=== PATIENT | female | born 2000 | race Native Hawaiian/Other Pacific Islander ===

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

== ENCOUNTER 2020-06-05 20:36 | Outpatient (CLI) | payer OTHER ==
[2020-06-05 21:03] VITALS: BP 101/65
[2020-06-05] MEDS ORDERED: LACTATED RINGERS 1,000 ML IV ONE (21:12)
[2020-06-05 21:31] LABS: Bacteria,Urine 1+ /HPF (Negative); Bilirubin,Urine NEG (Negative); Blood,Urine NEG (Negative); Color,Urine Yellow (Yellow); Mucus,Urine FEW /HPF; Protein,Urine <15 mg/dL mg/dL (Negative); Urobilinogen,Urine < 2.0 mg/dL (<2.0)
== END 2020-06-05 22:35 | disposition home or self-care (01) ==
LOC: TRG 20:36 → APU 20:39 → TRG 22:35
PROVIDERS: ATTEND Obstetrics & Gynecology
DX: O26.892 Other specified pregnancy related conditions, second trimester (principal); R10.9 Unspecified abdominal pain; Z3A.21 21 weeks gestation of pregnancy
CPT/HCPCS: 59025; 81001